=== PATIENT | female | born 1990 | race Caucasian/White ===

== ENCOUNTER 2018-03-13 11:08 | Day surgery (SDC) | payer OTHER ==
[2018-03-13] MEDS ORDERED: LIDOCAINE 1% 2 ML INJ ID PRN (11:24)
[2018-03-13] MEDS ORDERED: LR 1,000 ML IV ONE (11:24)
[2018-03-13] MEDS ORDERED: BUPIVACAINE 0.5% 30 ML SDV ONE (11:47)
[2018-03-13] MEDS ORDERED: ROPIVACAINE HCL 150 MG/30 ML INJ ONE (11:47)
[2018-03-13] MEDS ORDERED: DEXAMETHASONE 4 MG/ML VIAL ONE ×3 (11:48→13:55)
[2018-03-13] MEDS ORDERED: POLYMYXIN B SULFATE 500,000 UNIT/10 ML SYR IRR ONE (11:49)
[2018-03-13] MEDS ORDERED: BACITRACIN 50,000 UNITS/10 ML SYR IRR ONE (11:49)
[2018-03-13] MEDS ORDERED: ceFAZolin 2 GM/SWFI 2 GM/20 ML SYR IVP ONE (12:20)
[2018-03-13] MEDS ORDERED: MIDAZOLAM 2 MG/2 ML VIAL ONE (12:36)
[2018-03-13] MEDS ORDERED: MIDAZOLAM 2 MG/2 ML VIAL IVP ONE (12:39)
--- NOTE | 2018-03-13 12:40 | PDANEPAE ---
ANE History of Present Illness neuroma excision ANE Past Medical History - Cardiovascular History Hx Hypertension: No Hx Arrhythmias: No Hx Chest Pain: No Hx Coronary Artery / Peripheral Vascular Disease: No Hx CHF / Valvular Disease: No Hx Palpitations: No - Pulmonary History Hx COPD: No Hx Asthma/Reactive Airway Disease: No Hx Recent Upper Respiratory Infection: No Hx Oxygen in Use at Home: No Hx Sleep Apnea: No Sleep Apnea Screening Result - Last Documented: Negative - Neurologic History Hx Cerebrovascular Accident: No Hx Seizures: No Hx Dementia: No - Endocrine History Hx Diabetes: No Hypothyroid: No Hyperthyroid: No - Renal History Hx Renal Disorders: No - Liver History Hx Hepatic Disorders: No - Neurological & Psychiatric Hx Hx Neurological and Psychiatric Disorders: No - Cancer History Hx Cancer: No - Congenital Disorder History Hx Congenital Disorders: No - GI History Hx Gastrointestinal Disorders: No - Other Health History Other Health History: neuroma L ft Higuera's - Chronic Pain History Chronic Pain: Yes (L ft) - Surgical History Prior Surgeries: none ANE Review of Systems Review of Systems: - Exercise capacity METS (RN): 5 METS ANE Patient History - Allergies Allergies/Adverse Reactions: No Known Allergies Allergy (Unverified 02/25/18 13:55) - Home Medications Home Medications: NK [No Known Home Meds] 02/25/18 [Last Taken Unknown] - NPO status NPO Since - Liquids (Date): 03/13/18 NPO Since - Liquids (Time): 09:00 NPO Since - Solids (Date): 03/12/18 NPO Since - Solids (Time): 20:00 - Anes Hx Anes Hx: no prior problems - Smoking Hx Smoking Status: Never smoked - Family Anes Hx Family Hx Anesthesia Complications: none ANE Labs/Vital Signs - Vital Signs Blood Pressure: 119/85 Heart Rate: 72 Respiratory Rate: 16 O2 Sat (%): 99 Height: 165.1 cm Weight: 53.524 kg ANE Physical Exam - Airway Mallampati Score: Class 2 Mouth exam: normal dental/mouth exam - Pulmonary Pulmonary: no respiratory distress - Cardiovascular Cardiovascular: regular rate and rhythym - ASA Status ASA Status: I ANE Anesthesia Plan Anesthesia Plan: GA with mask, MAC
[2018-03-13] MEDS ORDERED: PROPOFOL/EMULSION 500 MG/50 ML BOTTLE IV ONE ×2 (12:48→14:30)
[2018-03-13] MEDS ORDERED: fentaNYL 100 MCG/2 ML INJ ONE (12:48)
[2018-03-13] MEDS ORDERED: LIDOCAINE 2% 5 ML SDV ONE (12:49)
[2018-03-13] MEDS ORDERED: ONDANSETRON 4 MG/2 ML VIAL ONE (12:49)
[2018-03-13] MEDS ORDERED: KETOROLAC 30 MG/1 ML SDV ONE (12:49)
[2018-03-13] MEDS ORDERED: LIDOCAINE 1% 300 MG/30 ML SDV ONE ×2 (13:03→13:55)
--- NOTE | 2018-03-13 13:18 | PDHPUP ---
History & Physical Update H&P update statement: This history and physical update is based on an assessment of the patient which was completed after admission or registration (within 24 hours), but prior to the surgery/procedure. Update: mild sore throat H&P update: no change in patient's condition since H&P completed (no change) H&P changes: MILD SORE THROAT. Denies chest pain, congestion, coughing, fever or feeling poorly.
[2018-03-13] MEDS ORDERED: CYANO/VITAMIN B12 1000 MCG/ML VIAL ONE ×2 (13:44→13:55)
[2018-03-13] MEDS ORDERED: PHENYLEPHRINE HCL 100 MCG/ML SYR IVP PRN (14:37)
[2018-03-13] MEDS ORDERED: LR 500 ML IV PRN (14:37)
[2018-03-13] MEDS ORDERED: ALBUTEROL 3 ML DEYVIAL IH PRN (14:37)
[2018-03-13] MEDS ORDERED: fentaNYL 100 MCG/2 ML INJ IVP PRN (14:37)
[2018-03-13] MEDS ORDERED: NALOXONE HCL 0.4 MG/ML INJ IVP PRN (14:37)
[2018-03-13] MEDS ORDERED: HYDROCODONE/APAP 5/325 TAB PO PRN (14:37)
[2018-03-13] MEDS ORDERED: ONDANSETRON 4 MG/2 ML VIAL IVP PRN (14:37)
--- NOTE | 2018-03-13 14:37 | POSTANESTH ---
Post Anesthetic Evaluation Cardiovascular Status: Normal, Stable Respiratory Status: Normal, Stable Level of Consciousness/Mental Status: Can Participate in Eval Pain Control: Adequate, Prn Tx Ordered Nausea/Vomiting Control: Adequate, Prn Tx Ordered Complications Possibly Related to Anesthesia: None Noted
--- NOTE | 2018-03-13 14:51 | POSTOPPROG ---
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 There was a bit of delay to obtain full local anesthesia to the foot. The nerve was not incised until full anesthesia noted. Drains: Other (silastic drain)
[2018-03-13 15:49] VITALS: BP 98/66
--- NOTE | 2018-03-13 16:12 | GOP ---
[f rep st] OPERATIVE REPORT DATE OF OPERATION: 03/13/2018 SURGEON: Roberta Garcia DPM ANESTHESIOLOGIST: Tyree Cook MD. PREOPERATIVE DIAGNOSIS: Neuroma, 3rd intermetatarsal space, left foot. POSTOPERATIVE DIAGNOSIS: Neuroma, 3rd intermetatarsal space, left foot. PROCEDURE PERFORMED: Excision of neuroma 3rd intermetatarsal space, left foot. FINDINGS: INDICATIONS: Recalcitrant pain in the left forefoot, present for greater than 1 year's duration. Ex hausted conservative treatment efforts, which have included local cortisone injections providing very temporary relief and then little after that, [id number] inserts, and prescription orthotic dev ices. 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 She is frustrated since her activitie s are limited and running is limited due to the pain. At this time, she elects to proceed with surge ry. DESCRIPTION OF PROCEDURE: Patient was brought into the operating room and placed on the operating ta ble in a supine position. Intravenous sedation was administered by the anesthesiologist. Posterior tibial and peripheral nerve block obtained, utilizing total of 15 cc of 1:1:1 mix of 1% lidocaine omer in with ropivacaine, 1.5% Marcaine plain. The lower extremity was prepped and draped in the usual st erile manner. After the limb had been elevated, it was exsanguinated with an Esmarch bandage, ankle tourniquet was inflated to 210 mmHg, and the procedure was begun. Webril padding utilized under the ankle cuff. Incision was created along the dorsal aspect of the 3rd intermetatarsal space. The inci stacy was carefully deepened with care of neurovascular structures, and then clamped and cauterized bl eeders. Synovitic tissue was noted in the intermetatarsal space. Incision was carefully deepened, a nd the intermetatarsal space was noted to be very tight. The nerve was identified, its branches exte nding to the 3rd and into the 4th digit. There was slight enlargement, but not notably. Again, syno vitic tissue noted around the tight intermetatarsal space. The tight intermetatarsal ligament was re leased, and then with careful dissection, the distal branches of the 3rd and 4th digits were transect ed at their most distal appreciation. With proximal retraction, the proximal stem was released at th e level of the intrinsic muscles. Nerve was transected and sent to Pathology for gross and microscop ic examination. Wound was irrigated with bacitracin irrigation solution. Tourniquet released, and a normal hyperemic response was noted to all digits. A little bit more bleeding than expected, and Moon rgicel was utilized. Note, onset of anesthesia was a bit delayed, so there was a period of waiting u ntil she was fully numb before transecting the nerve branches. Additional lidocaine and bupivacaine injected, an approximately additional 10 mL of a 1:1 mix of the 2. A separate stab incision was crea linda for exiting of a silastic drain, which was secured with Prolene. Once bleeding was controlled, subcutaneous closure achieved with 4-0 Monocryl, and the skin was close d with 4-0 Prolene in a horizontal interrupted suture manner. Dressings include Xeroform, 4x4s, fluf fs, Elvis reinforced with tape, and an Jose bandage. Patient tolerated the procedure and anesthesia v esmer well and left the operating room with vital signs stable and vascular status intact to all digits . No intraoperative complications. In her postop recovery, she was doing well. She was fitted with a cryo cuff. She was given Toradol. She is to follow up at our office in 2 days for wound check. Prognosis good. Her parents will be providing her transportation home. INTRAOPERATIVE FINDINGS: Synovitic tissue, tight intermetatarsal space. /[id number]/MODL
== END 2018-03-13 16:09 | disposition home or self-care (01) ==
LOC: FSGY 11:08
PROVIDERS: ATTEND Podiatrist
PROC: 01BG0ZZ Excision of Tibial Nerve, Open Approach (ICD-10-PCS; principal; 2018-03-13 12:30)
DX: G57.82 Other specified mononeuropathies of left lower limb (principal); M65.9 Synovitis and tenosynovitis, unspecified; J02.9 Acute pharyngitis, unspecified
CPT/HCPCS: J0690; J1100; J1885; J2250; J2405; J2704; J2795; J3010; J3420